=== PATIENT | female | born 1930 | race Caucasian/White ===

== ENCOUNTER 2018-10-04 07:19 | Emergency (ER) | payer OTHER, MEDICARE ==
[~2018-10-04] VITALS: Ht 160 cm; Wt 68.0 kg
--- NOTE | ~2018-10-04 | HC ---
[facility] [place] [address] CONSULTATION Name: MONET CHO [facility] [id number] Admission: 10/04/18 ������������������ Attend Phys: Discharge: 10/04/18 ������������������ Date of : [birth year] Report #: [id number] THIS REPORT FOR: //name// CC: Odessa Cagle HISTORY OF PRESENT ILLNESS: The patient is an 88-year-old female known to myself. She came in with progressive shortness of breath for the last week. We had cut back on the Lasix due to incontinence. This was at my visit with her 2 weeks ago. We are weak past Easter now and had some Easter ham and has been progressively short of breath all week. Slight increase in her weight. Some mild edema. No significant PND, orthopnea, but became progressively worse early this morning and her daughter brought her to the Emergency Room. She was not significantly hypoxic. She was mildly dyspneic and this has improved since IV Lasix. The chest x-ray has a small right pleural effusion and some bibasilar opacities consistent with some mild interstitial pulmonary edema. LABORATORY DATA: Sodium 143, potassium 3.88, creatinine 1.0, glucose 119. SGPT is elevated at 346. BNP is elevated at 5476 and she has run a mildly elevated BNP. H and H are 15 and 45. Alkaline phosphatase is not elevated. SGOT is 177. CURRENT MEDICATIONS: Bystolic 10, Lasix 40 every other day, Synthroid, Zestril 5, Exelon, trazodone. PAST MEDICAL HISTORY: Positive for hypertension; hypercholesterolemia; some mild progressive dementia; had 50% blockage from catheterization 10 years ago, that was in the LAD, but it was not intervened on; hyperthyroidism; DJD; reflux; prior right shoulder surgery. SOCIAL HISTORY: . Social alcohol. She was a former smoker. Two cups of coffee a day. Still relatively independent, but some mild progressive dementia. ALLERGIES: PENICILLIN AND SULFA. PHYSICAL EXAMINATION: GENERAL: She is pleasant and now she does not appear to be dyspneic. She has been given IV Lasix. VITAL SIGNS: Blood pressure 170/80, pulse 60s. HEENT: Eyes: No arcus senilis, no xanthelasmas. Pharynx is clear. NECK: Shows preserved upstrokes without JVD or bruits. LUNGS: Few fine crackles in the right base, otherwise fairly clear. CARDIAC: Distant heart tones, S1, S2. ABDOMEN: Soft. No HSM or abdominal bruit. There is a questionable palpable liver edge. No hepatojugular reflux, however. EXTREMITIES: Reveal trace edema. Distal pulses intact. [facility] [address] [place] [address] CONSULTATION Name: MONET CHO KESHA ELIZABETHEY Room #: DEP [facility]#: [id number] Admission: 10/04/18 ������������������ Attend Phys: Discharge: 10/04/18 ������������������ Date of : [birth year] Report #: [id number] NEUROLOGIC: Nonfocal. SKIN: Warm and dry without xanthoma or ulcer. MUSCULOSKELETAL: Generalized arthritic changes. ASSESSMENT: 1. [id number] diastolic heart failure, partially due to some dietary and medication noncompliance. 2. Hypertension. 3. Elevated liver function tests, may be due to passive congestion, but may need further workup as an outpatient with primary. 4. Hypothyroidism. RECOMMENDATIONS AND PLAN: I agree with IV Lasix. I will go back to Lasix on a daily basis. I will discuss with Dr. Burton about this elevated liver function test. We could have to grab an abdominal ultrasound as an outpatient and may need further workup or at least repeat of LFTs, but I would try a period of diuresis as this may well represent passive congestion. She will have followup arranged with my nurse practitioner in the next 2-3 weeks with an abdominal ultrasound. Dietary -- relative diet and fluid restriction, which I did discuss with the patient's daughter who is present and daily weights. ��������������������������������������������� ���������������������������������������� By: ��������������������������������������������� [id number] Quan Rodriguez MD, FACC /nt
[~2018-10-04 07:19] MED LIST: B-COMPLEX PLUS1 EACH PO; BYSTOLIC 5 MG5 M1 PO; BYSTOLIC10 MG PO; COZAAR; COZAAR100 MG PO; DESYREL150 MG PO; EXELON 9.5 MG9.5 MG; EXELON 9.5 MG9.5 MG TD; EXELON1 EAC1 TRANSDERM; FUROSEMIDE 40 M40 M1 PO; K-DUR 20 MEQ T20 MEQ PO; LASIX 40 MG TAB40 MG PO; LUNESTA3 MG PO; MACROBID 100 M100 M1 PO; NAMENDA 10 MG T10 MG PO; NORCO 5-325 TA1 EACH PO; NORCO 7.5-3251 EACH PO; OXYCONTIN10 M1 PO; POTASSIUM20; PRAVACHOL40 MG PO; PRAVASTATIN SOD20 MG PO; PREVACID PO; SYNTHROID25 MC1 PO; SYNTHROID50 MCG PO; TRAZODONE PO; VALIUM2 MG PO; VITAMIN D-32000 UNIT PO; VITAMIN E100 M1 PO; VITAMIN E400 UNIT PO; ZOFRAN 4 MG ORAL4 M1 DIS
[2018-10-04] MEDS ORDERED: LEXAPRO5 MG PO (07:42)
[2018-10-04] MEDS ORDERED: LASIX 40 MG TAB40 M2 PO (07:43)
[2018-10-04] MEDS ORDERED: MOBIC15 MG PO (07:43)
[2018-10-04] MEDS ORDERED: EFFEXOR XR37.5 MG PO (07:44)
[2018-10-04 08:03] LABS: ABSOLUTE NEUTROPHILS 4.5 thou/uL (1.4-8.2); BASOPHILS 0.7 % (0.0-2.0); EOSINOPHILS 2.5 % (0.0-3.0); HEMATOCRIT 45.9 % (37.0-47.0); HEMOGLOBIN 15.6 gm/dL (12.0-15.0); LYMPHOCYTES 19.3 % (24.0-44.0); MCH 32.6 pg (26.0-34.0); MCV 95.9 fL (80.0-100.0); MONOCYTES 7.6 % (1.0-8.0); PLATELET COUNT 200 thou/uL (150-400); POLYS 69.9 % (36.0-66.0); RBC 4.78 mil/uL (4.20-5.00); RDW 13.5 % (10.5-14.5); WBC 6.5 thou/uL (4.0-11.0)
[2018-10-04 08:06] LABS: ANION GAP 10 mmol/L (7-16); BUN 25 mg/dL (7-18); CALCIUM 9.7 mg/dL (8.5-10.1); CHLORIDE 105 mmol/L (98-107); CO2 28 mmol/L (21-32); GLUCOSE 119 mg/dL (74-106); POTASSIUM 3.8 mmol/L (3.5-5.1); SODIUM 143 mmol/L (136-145)
[2018-10-04 08:17] LABS: ALBUMIN 4.2 g/dL (3.4-5.0); SGOT 177 U/L (15-37); SGPT 346 U/L (30-65); TOTAL BILIRUBIN 1.4 mg/dL (<0.1-1.0); TOTAL PROTEIN 7.6 g/dL (6.4-8.2); TROPONIN-I <0.06 ng/mL (<0.06)
[2018-10-04 11:07] VITALS: BP 161/88
--- NOTE | 2018-10-04 13:38 | EKG ---
[place] [address] [facility] [employer] [place] [address] ELECTROCARDIOGRAM REPORT Name: ALBERTO CHOHLEEN KESHA CHRIS Room #: DEP [facility]#: [id number] ������������������ Admission: 10/04/18 ������������������ Attend Phys: Discharge: 10/04/18 ������������������ Date of : [birth year] Report #: [id number] ����������������������������������������������������������������� [id number] THIS REPORT FOR: //name// [facility] ED Test Date: 2018-10-04 Test Time: 08:11:36 Pat Name: MONET CHO Department: Room: Gender: F [employer] Runner: LUCÍA : 1930 Requested By: Dayanara Cagle Order Number: [id number] MD: Davonte Moya Measurements Intervals [place] Rate: 64 P: -22 NE: 173 QRS: -20 QRSD: 93 T: 3 QT: 438 QTc: 452 Interpretive Statements Sinus rhythm Poor R wave progression Inferior infarct, old Compared to ECG 07/28/2013 09:01:48 No significant changes Electronically Signed On 10-04-2018 13:37:49 CDT by Davonte Moya [email or web address] ��������������������������������������������� <ELECTRONICALLY SIGNED> ���������������������������������������� By: Davonte Moya MD, [facility] ��������������������������������������������� 10/04/18 1337 0 0 Davonte Moya MD, [facility] /EPI
== END 2018-10-04 11:08 | disposition home or self-care (01) ==
LOC: ER 07:19
PROVIDERS: Student in an Organized Health Care Education/Training Program
DX: I13.0 Hypertensive heart and chronic kidney disease with heart failure and stage 1 through stage 4 chronic kidney disease, or unspecified chronic kidney disease (principal); N18.9 Chronic kidney disease, unspecified; I50.9 Heart failure, unspecified; E03.9 Hypothyroidism, unspecified; K21.9 Gastro-esophageal reflux disease without esophagitis; G30.9 Alzheimer's disease, unspecified; F02.80 Dementia in other diseases classified elsewhere, unspecified severity, without behavioral disturbance, psychotic disturbance, mood disturbance, and anxiety; Z90.710 Acquired absence of both cervix and uterus; Z88.0 Allergy status to penicillin; Z88.2 Allergy status to sulfonamides; Z88.8 Allergy status to other drugs, medicaments and biological substances; Z87.891 Personal history of nicotine dependence

== ENCOUNTER → 2018-10-07 | Outpatient (CLI) | payer OTHER, MEDICARE ==
[~2018-10-07] MED LIST changes: +EFFEXOR XR37.5 MG PO; +LASIX 40 MG TAB40 M2 PO; +LEXAPRO5 MG PO; +MOBIC15 MG PO
== END ==
LOC: ULTRA 07:55
DX: R94.5 Abnormal results of liver function studies (principal)